=== PATIENT | male | born 1965 | race Two or more races ===

== ENCOUNTER 2018-12-19 00:17 | Emergency (ER) | payer OTHER ==
[~2018-12-19] VITALS: Ht 175.3 cm; Wt 97.5 kg
[~2018-12-19 00:17] MED LIST: ACET-1156 PO; ALLO-52 PO; CEPH-37 PO; COLC0.6T56 PO; DOC100C PO; HYDR-3682 PO; HYDR-4833 PO; INDO25CA17 PO; LATA0.0015 OP; LISI10TA6 PO; META-116 PO; METH-532 PO; METH750T3 PO; RISP2TAB62 PO; RISP4TAB53 PO; TRAM50TA2 PO; TRAV0.00 OP
[2018-12-19 01:48] LABS: Basophils # (auto) 0 uL; Basophils % (auto) 0.5 % (0.0-2.0); Eosinophils # (auto) 0.2 uL; Eosinophils % (auto) 1.6 % (0.0-7.0); Hematocrit 37.2 % (41.0-53.0); Hemoglobin 12.6 g/dL (13.5-17.5); Lymphocytes # (auto) 2.4 uL; Lymphocytes % (auto) 25.1 % (10.0-50.0); Mean Corpuscular Hemoglobin 28.9 pg (28.0-32.0); Mean Corpuscular Hgb Conc. 33.9 g/dL (32.0-36.0); Mean Corpuscular Volume 85.2 fL (80.0-100.0); Monocytes # (auto) 0.9 uL; Monocytes % (auto) 9.1 % (0.0-12.0); Neutrophils # (auto) 6.2 uL; Neutrophils % (auto) 63.7 % (37.0-80.0); Platelet Count (auto) 375 10^3/uL (140-450); Red Blood Cells 4.37 10^6/uL (4.5-5.90); Red Cell Distribution Width 15.8 % (11.8-14.3); White Blood Cell 9.7 10^3/uL (4.4-10.8)
[2018-12-19 02:05] LABS: Albumin 3.2 g/dL (3.4-5.0); Calcium 8.6 mg/dL (8.5-10.1); Potassium 3.9 mmol/L (3.5-5.1)
[2018-12-19 02:07] LABS: BUN/Creatinine Ratio 14.1
[2018-12-19 02:09] LABS: Bilirubin, Total 0.4 mg/dL (0.2-1.0); Total Protein 7.6 g/dL (6.4-8.2)
[2018-12-19 04:30] VITALS: BP 114/66
== END 2018-12-19 05:14 | disposition home or self-care (01) ==
LOC: EEVIPCON 00:18 → ER 00:18
DX: L03.116 Cellulitis of left lower limb (principal); E11.9 Type 2 diabetes mellitus without complications; E78.5 Hyperlipidemia, unspecified; M79.605 Pain in left leg; I10 Essential (primary) hypertension; F17.210 Nicotine dependence, cigarettes, uncomplicated
CPT/HCPCS: 36415; 80053; 85025; 93971